=== PATIENT | female | born 1955 | race Caucasian/White ===

== ENCOUNTER 2022-03-18 10:00 | Inpatient (IN) | payer MEDICAID ==
[2022-03-18] VITALS (26 sets, daily range): BP systolic 94–151; BP diastolic 43–83
[~2022-03-18] VITALS: Ht 170.2 cm; Wt 68.5 kg
[2022-03-18] MEDS ORDERED: SODIUM CHLORIDE 0.9% 1,000 ML IV ONE (10:15)
[2022-03-18] MEDS ORDERED: MORPHINE SULFATE 4 MG/ML CPJ (NOT FOR IM USE) IV ONE (10:45)
[2022-03-18] MEDS ORDERED: NOREPINEPHRINE 8 MG in DEXT 5% WATER 242 ML IV PRN (11:00)
[2022-03-18 11:10] LABS: BASOPHILS % 0.4 % (0.0-2.0); HEMATOCRIT. 26.1 % (36.0-48.0); LYMPHOCYTES % 25.7 % (20.0-50.0); MEAN CORPUSCULAR HEMOGLOBIN 31.7 pg (28.0-32.0); MEAN CORPUSCULAR VOLUME 92.3 fL (81.0-99.0); MEAN PLATELET VOLUME 8.9 fl (7.4-10.4); MONOCYTES % 6.6 % (2.0-8.0); NEUTROPHILS % 66.3 % (40.0-76.0); PLATELET 257 x1000/uL (130-400); RED BLOOD CELL COUNT 2.83 mill/uL (4.2-5.4); RED CELL DISTRIBUTION WIDTH 13.7 % (11.6-14.6)
[2022-03-18 11:18] LABS: CHLORIDE 109 mEq/L (98-107)
[2022-03-18 11:22] LABS: INR 3.3; PARTIAL THROMBOPLASTIN TIME 62.8 sec (23.4-31.0); PROTHROMBIN TIME 31.9 sec (9.6-11.0)
[2022-03-18] MEDS ORDERED: IOHEXOL-350 100 ML BOTTLE ONE (13:41)
[2022-03-18] MEDS ORDERED: PHYTONADIONE 10 MG in DEXTROSE 5% WATER 50 ML SUBCUT ONE (14:15)
[2022-03-18] MEDS ORDERED: PHYTONADIONE 5 MG/5ML ORAL SYRINGE PO NR (14:30)
[2022-03-18] MEDS ORDERED: DOCUSATE SODIUM 100MG CAPSULE PO PRN (16:45)
[2022-03-18] MEDS ORDERED: MAGNESIUM/ALUMINUM HYDROXIDE/SIMETHICONE 30ML UDC PO PRN (16:45)
[2022-03-18] MEDS ORDERED: ACETAMINOPHEN 325MG TABLET PO PRN (16:45)
[2022-03-18] MEDS ORDERED: ZOLPIDEM TARTRATE 5MG TABLET PO PRN (16:45)
[2022-03-18] MEDS ORDERED: DEXTROSE 50% WATER 50ML SYRINGE IV PRN (16:45)
[2022-03-18] MEDS ORDERED: IPRATROPIUM/ALBUTEROL 0.5-3(2.5)MG/3ML NEB HHN PRN (16:45)
[2022-03-18] MEDS ORDERED: GUAIFENESIN 200MG/10ML SUGAR FREE UDC PO PRN (16:45)
[2022-03-18] MEDS ORDERED: CLONIDINE 0.1MG TABLET PO PRN (16:45)
[2022-03-18] MEDS ORDERED: ONDANSETRON HCL 4MG/2ML INJ IV PRN (16:45)
[2022-03-18] MEDS ORDERED: NALOXONE HCL 0.4MG/ML VIAL IV PRN (17:00)
[2022-03-18] MEDS: INSULIN LISPRO 100 UNITS/ML SUBCUT SCH ×2 (18:00→21:51)
[2022-03-18] MEDS: BLOOD SUGAR DIAGNOSTIC STRIP TEST SCH (21:00)
[2022-03-18 21:20] LABS: HEMATOCRIT 33.8 % (36.0-48.0); HEMOGLOBIN 11.5 g/dL (12.0-16.0)
[2022-03-18 22:06] LABS: FOLIC ACID (FOLATE) SERUM 14.5 ng/mL (>5.38)
[2022-03-19] VITALS (28 sets, daily range): BP systolic 90–160; BP diastolic 49–77
[2022-03-19 01:19] LABS: CLARITY URINE CLEAR (CLEAR); COLOR URINE YELLOW (YELLOW); KETONES URINE NEGATIVE (NEGATIVE); LEUKOCYTE ESTERASE URINE NEGATIVE (NEGATIVE); NITRITE URINE NEGATIVE (NEGATIVE); OCCULT BLOOD URINE NEGATIVE (NEGATIVE); PROTEIN URINE NEGATIVE (NEGATIVE); SPECIFIC GRAVITY URINE 1.062 (1.005-1.030); UROBILINOGEN URINE 0.2 E.U./dL (0.2-1.0)
[2022-03-19 01:58] LABS: *AMPHETAMINES SCREEN URINE NEGATIVE (NEGATIVE); *BARBITURATES SCREEN URINE NEGATIVE (NEGATIVE); *BENZODIAZEPINES SCREEN URINE PRESUMTIVE POSITIVE (NEGATIVE); *COCAINE SCREEN URINE NEGATIVE (NEGATIVE); CANNABINOID URINE SCREEN NEGATIVE (NEGATIVE); METHADONE URINE SCREEN NEGATIVE (NEGATIVE); OPIATES URINE SCREEN PRESUMTIVE POSITIVE (NEGATIVE); PHENCYCLIDINE URINE SCREEN NEGATIVE (NEGATIVE)
[2022-03-19 03:11] LABS: HEMATOCRIT 32.2 % (36.0-48.0); HEMOGLOBIN 11.1 g/dL (12.0-16.0)
[2022-03-19 05:44] LABS: BASOPHILS % 0.5 % (0.0-2.0); EOSINOPHILS % 1.1 % (0.0-5.0); HEMATOCRIT. 32.7 % (36.0-48.0); HEMOGLOBIN. 11.3 g/dL (12.0-16.0); LYMPHOCYTES % 29.6 % (20.0-50.0); MEAN CORPUSCULAR HEMOGLOBIN 31.8 pg (28.0-32.0); MEAN CORPUSCULAR VOLUME 92.3 fL (81.0-99.0); MEAN PLATELET VOLUME 9.3 fl (7.4-10.4); MONOCYTES % 8.7 % (2.0-8.0); NEUTROPHILS % 60.1 % (40.0-76.0); PLATELET 181 x1000/uL (130-400); RED BLOOD CELL COUNT 3.55 mill/uL (4.2-5.4); RED CELL DISTRIBUTION WIDTH 14.3 % (11.6-14.6)
[2022-03-19] MEDS: INSULIN LISPRO 100 UNITS/ML SUBCUT SCH ×5 (06:15→20:53)
[2022-03-19] MEDS: BLOOD SUGAR DIAGNOSTIC STRIP TEST SCH ×4 (06:15→20:53)
[2022-03-19 06:16] LABS: CHLORIDE 110 mEq/L (98-107)
[2022-03-19 06:48] LABS: HDL CHOLESTEROL 32 mg/dL (40-59); LDL CHOLESTEROL 45 mg/dL (5-100); PHOSPHORUS 3.8 mg/dL (2.5-4.9)
[2022-03-19] MEDS: PANTOPRAZOLE SODIUM 40 MG/VIAL IV SCH (08:46)
[2022-03-19 09:54] LABS: HEMATOCRIT 33.5 % (36.0-48.0); HEMOGLOBIN 11.2 g/dL (12.0-16.0)
[2022-03-19] MEDS: ACETAMINOPHEN 325MG TABLET PO PRN (09:56)
[2022-03-19] MEDS: TRAMADOL 50MG TABLET PO PRN (12:42)
[2022-03-19 16:19] LABS: HEMATOCRIT 31.5 % (36.0-48.0); HEMOGLOBIN 10.6 g/dL (12.0-16.0); MEAN CORPUSCULAR HEMOGLOBIN 31.3 pg (28.0-32.0); MEAN CORPUSCULAR VOLUME 92.9 fL (81.0-99.0); PLATELET 175 x1000/uL (130-400); RED BLOOD CELL COUNT 3.39 mill/uL (4.2-5.4); RED CELL DISTRIBUTION WIDTH 14.3 % (11.6-14.6)
[2022-03-20] VITALS: BP 111/50
[2022-03-20 04:00] VITALS: BP 118/54
[2022-03-20] MEDS: BLOOD SUGAR DIAGNOSTIC STRIP TEST SCH ×4 (07:10→20:07)
[2022-03-20 08:00] VITALS: BP 118/59
[2022-03-20] MEDS: INSULIN LISPRO 100 UNITS/ML SUBCUT SCH ×4 (08:15→20:07)
[2022-03-20] MEDS: PANTOPRAZOLE SODIUM 40 MG/VIAL IV SCH (08:15)
[2022-03-20] MEDS: TRAMADOL 50MG TABLET PO PRN (08:17)
[2022-03-20 12:00] VITALS: BP 120/73
[2022-03-20 16:00] VITALS: BP 133/56
[2022-03-20 20:00] VITALS: BP 136/58
[2022-03-21] VITALS: BP 125/46
[2022-03-21 04:00] VITALS: BP 120/41
[2022-03-21] MEDS: BLOOD SUGAR DIAGNOSTIC STRIP TEST SCH ×3 (05:25→17:04)
[2022-03-21] MEDS: INSULIN LISPRO 100 UNITS/ML SUBCUT SCH ×3 (05:27→18:25)
[2022-03-21] MEDS: TRAMADOL 50MG TABLET PO PRN ×2 (06:12→18:12)
[2022-03-21 08:00] VITALS: BP 99/59
[2022-03-21] MEDS: ACETAMINOPHEN 325MG TABLET PO PRN (09:04)
[2022-03-21] MEDS: PANTOPRAZOLE SODIUM 40 MG/VIAL IV SCH (09:05)
[2022-03-21 12:00] VITALS: BP 111/62
[2022-03-21 16:00] VITALS: BP 116/72
[2022-03-21 18:12] VITALS: BP 116/55
== END 2022-03-21 19:56 | disposition home or self-care (01) | DRG 813 ==
LOC: EDBD 10:00 → ER 10:00 → UNDOADMIN 14:34 → MICUSO 14:34 → ENRESERV 14:39 → EDBEDREQ 14:42 → EDBEDREQTM 14:42 → MICUSO 17:18 → 8WST 03-19 12:27
PROVIDERS: ADMIT Internal Medicine; ATTEND Internal Medicine
PROC: 30233N1 Transfusion of Nonautologous Red Blood Cells into Peripheral Vein, Percutaneous Approach (ICD-10-PCS; principal; 2022-03-18)
DX: K91.871 Postprocedural hematoma of a digestive system organ or structure following other procedure (principal); R57.8 Other shock; K66.1 Hemoperitoneum; E44.1 Mild protein-calorie malnutrition; E11.51 Type 2 diabetes mellitus with diabetic peripheral angiopathy without gangrene; I95.9 Hypotension, unspecified; I10 Essential (primary) hypertension; D62 Acute posthemorrhagic anemia; E78.5 Hyperlipidemia, unspecified; M10.9 Gout, unspecified; Z68.23 Body mass index [BMI] 23.0-23.9, adult; Y83.8 Other surgical procedures as the cause of abnormal reaction of the patient, or of later complication, without mention of misadventure at the time of the procedure; Y92.89 Other specified places as the place of occurrence of the external cause
CPT/HCPCS: 36415; 71045; 71275; 74174; 80053; 80061; 80305; 81003; 82607; 82746; 82962; 83036; 83540; 83550; 83605; 83735; 83880; 84100; 84443; 84484; 85014; 85018; 85025; 85027; 86850; 86900; 86920; 93005; 93970; 99291; C9113; J1815; J2270; J3430; J7030; J7060; P9016; Q9967